=== PATIENT | female | born 1955 | race Caucasian/White ===

== ENCOUNTER 2017-03-05 19:18 | Emergency (ER) | payer SELFPAY ==
[~2017-03-05] VITALS: Ht 154.9 cm; Wt 45.4 kg
[2017-03-05 19:45] VITALS: BP 212/100
--- NOTE | 2017-03-05 20:02 | Emergency Room Report ---
History of Present Illness General Chief Complaint: Dizziness Source: Patient Present Illness HPI 61YOF walk-in with dizziness, right sided weakness, difficult walking, katie- oral numbness since last night. States she wanted to take an aspirin, accidentally took ONE "muscle relaxer." Denies taking ibuprofen, tylenol, aspirin Denies ETOH, other drugs Denies PMHx or other medications Denies history of HTN Allergies: Coded Allergies: PENICILLINS (Verified Allergy, Unknown, 03/05/17) Patient History Past Medical History: none Past Surgical History: none Pertinent Family History: none Social History: Denies: alcohol use, drug use, smoking Now: No Immunizations: UTD Reviewed Nursing Documentation: PMH: Agreed, PSxH: Agreed Nursing Documentation-PMH Past Medical History: No Stated History Review of Systems All Other Systems: negative except mentioned in HPI Physical Exam Vital Signs Date Time Temp Pulse Resp B/P Pulse Ox O2 Delivery O2 Flow Rate FiO2 03/05/17 19:41 97.3 55 9 219/113 100 Room Air Sp02 EP Interpretation: reviewed, abnormal General Appearance: normal inspection, well appearing, no apparent distress, alert, GCS 15, non-toxic Head: normocephalic, atraumatic Eyes: bilateral eye EOMI, bilateral eye PERRL ENT: normal ENT inspection, hearing grossly normal, normal voice Neck: normal inspection, full range of motion, supple, no bony tend Respiratory: normal inspection, lungs clear, normal breath sounds, no respiratory distress, no retraction, no wheezing Cardiovascular #1: regular rate, rhythm, no edema Gastrointestinal: normal inspection, normal bowel sounds, non tender, soft, no guarding, no hernia Genitourinary: no CVA tenderness Musculoskeletal: normal inspection, back normal, normal range of motion, Charu' s Sign negative Neurologic: normal inspection, alert, oriented x3, responsive, 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 >200/100. - Symptomatic hypertension with dizziness - No chest pain, SOB - CT head: Acute left pontine hemorrhagic stroke - Nicardipine gtt started in ED - Labs: Tylenol/ASA levels negative. No FABRICIO. Troponin 0. - ECG: NSR. No ischemia 149/76 on 10mg of Nicardipine in ED at 848pm Endorsed to Dr Saini for NeuroICU transfer at 830pm to [facility] Will do rescue transfer to NeuroICU at [facility] Last Vital Signs Date Time Temp Pulse Resp B/P Pulse Ox O2 Delivery O2 Flow Rate FiO2 03/05/17 19:41 97.3 55 9 219/113 100 Room Air Status: improved Disposition: ADMITTED INPATIENT Condition: Critical RADHA HUMPHRIES M.D. Mar 05, 2017 20:02
[2017-03-05] MEDS ORDERED: niCARdipine HCl 200 ML IV SCH (20:15)
[2017-03-05 20:32] LABS: BASOPHILS % (AUTO) 0.9 % (0.0-2.0); EOSINOPHILS % (AUTO) 0.1 % (0.0-3.0); LYMPHOCYTES % (AUTO) 11.7 % (20.0-45.0); MEAN CORPUSCULAR HEMOGLOBIN 33.1 PG (27.0-31.0); MEAN CORPUSCULAR HGB CONC 33.4 G/DL (32.0-36.0); MEAN CORPUSCULAR VOLUME 99 FL (80-99); MEAN PLATELET VOLUME 6.4 FL (6.5-10.1); MONOCYTES % (AUTO) 4.7 % (1.0-10.0); NEUTROPHILS % (AUTO) 82.6 % (45.0-75.0); PLATELET COUNT 296 K/UL (150-450); RED BLOOD COUNT 4.71 M/UL (4.20-5.40); RED CELL DISTRIBUTION WIDTH 12.1 % (11.6-14.8); WHITE BLOOD COUNT 9.1 K/UL (4.8-10.8)
[2017-03-05 20:38] VITALS: BP 190/96
[2017-03-05 20:45] LABS: ACETAMINOPHEN < 10 ug/mL (10-30); ALANINE AMINOTRANSFERASE 14 U/L (3-33); ALBUMIN/GLOBULIN RATIO 1.3 (1.0-2.7); ANION GAP 10 (5-15); ASPARTATE AMINO TRANSFERASE 16 U/L (5-40); CALCIUM 9.3 mg/dL (8.6-10.2); CARBON DIOXIDE 27 mEQ/L (20-30); CHLORIDE 102 mEQ/L (98-107); CREATININE 0.9 mg/dL (0.5-0.9); GLOMERULAR FILTRATION RATE > 60 mL/min (>60); HEMOLYSIS 7; POTASSIUM 3.9 mEQ/L (3.4-4.9); SODIUM 139 mEQ/L (135-145); TOTAL PROTEIN 7.4 g/dL (6.6-8.7); TROPONIN I < 0.30 ng/mL (<=0.30)
[2017-03-05 20:47] VITALS: BP 148/76
[2017-03-05 20:56] LABS: CKMB 2.1 ng/mL (< 3.8)
[2017-03-05 20:58] VITALS: BP 159/81
[2017-03-05 21:15] VITALS: BP 148/80
--- NOTE | 2017-03-06 09:54 | Diagnostic Imaging Report ---
Indication: Chest pain Comparison: None A single view chest radiograph was obtained. Findings: Cardiomediastinal appearance is within normal limits for age. Pulmonary vascularity is appropriate. The diaphragmatic contour is smooth and costophrenic angles are sharp. No pleural effusions are identified. The bones are osteopenic. Impression: No acute findings
--- NOTE | 2017-03-06 11:33 | Diagnostic Imaging Report ---
Indication: Altered mental status Technique: Contiguous 5 mm thick transaxial imaging of the head obtained in a Siemens Sensation [address] scanner. Soft tissue and bone windows generated. Total Dose length Product (DLP): [address] Dose Index Volume (CTDIvol): 70.38 mGy Comparison: none Findings: 1.5 x 1.2 x 1.7 cm focus of high attenuation consistent with acute hemorrhage demonstrated within the posterior left paramedian aspect of the beck. Little to no associated edema. No mass effect. The fourth ventricle appears normal. There is no hydrocephalus. . Mild periventricular low attenuation noted. Paranasal sinuses as visualized appear clear. The bones are unremarkable. Impression: 1.5 x 1.2 x 1.7 cm focus of acute intraparenchymal hemorrhage in the left aspect of the beck. Critical value communication. Findings were discussed via telephone with Dr. Marcus of the E.D. at 20:22 03/05/[address] Devon Oliver. The CT scanner at [facility] is accredited by the [employer] and the scans are performed using dose optimization techniques as appropriate to a performed exam including Automatic Exposure control.
--- NOTE | 2017-03-08 17:53 | Cardiology Report ---
APPROVED REPORT EKG Measurement Heart [id number] Sinus bradycardia Otherwise normal ECG
== END 2017-03-05 21:06 | disposition short-term general hospital (02) ==
LOC: EDBEDREQ 20:19 → EMR 20:32
DX: I61.8 Other nontraumatic intracerebral hemorrhage (principal); R42 Dizziness and giddiness; R53.1 Weakness; I10 Essential (primary) hypertension; Z88.0 Allergy status to penicillin
CPT/HCPCS: 36415; 70450; 71010; 80053; 82550; 82553; 84484; 85025; 93005; 96374; 99285; G0480; 80329

== ENCOUNTER 2017-04-27 15:24 | Emergency (ER) | payer MEDICAID ==
[~2017-04-27] VITALS: Ht 152.4 cm; Wt 48.5 kg
[2017-04-27] MEDS ORDERED: Fluorescein Strips LEFT EYE ONE (15:45)
[2017-04-27] MEDS ORDERED: Tetracaine 0.5% Opth Soln LEFT EYE ONE (15:45)
--- NOTE | 2017-04-27 15:54 | Emergency Room Report ---
History of Present Illness General Chief Complaint: Eye Problems Source: Patient Present Illness HPI 61 YO female presents to the emergency department complaining of discharge, lacrimation and erythema of the left eye x2 days. Patient states that earlier this week her right eye had similar symptoms. Patient denies pain despite triage note. She reports some photophobia to sunlight. She denies contact lens use, reports use of glasses. Denies foreign body sensation. Patient reports that her left eye was very sticky upon awakening this morning. She denies trauma to the eye, swelling of the eyelids, or scratching sensation. Denies: Pain, Loss of vision, Floaters, Flashing lights, Diplopia/blurry vision. Denies AGUILAR. Allergies: Coded Allergies: PENICILLINS (Verified Allergy, Unknown, 03/05/17) Patient History Past Medical History: see triage record Past Surgical History: none Pertinent Family History: none Now: No Reviewed Nursing Documentation: PMH: Agreed, PSxH: Agreed Nursing Documentation-PMH Hx Hypertension: Yes Hx Cerebrovascular Accident: Yes - 03/05/17 Review of Systems All Other Systems: negative except mentioned in HPI Physical Exam Vital Signs Date Time Temp Pulse Resp B/P (MAP) Pulse Ox O2 Delivery O2 Flow Rate FiO2 04/27/17 15:29 98.1 71 16 127/82 96 Room Air Sp02 EP Interpretation: reviewed, normal General Appearance: no apparent distress, alert, GCS 15, non-toxic Head: normocephalic, atraumatic Eyes: bilateral eye normal inspection, bilateral eye PERRL, bilateral eye EOMI , bilateral eye other - d/c prominently in the left eye, bilateral scleral injection/erythema, and increased lacrimation, no appreciable photophobia on PE ENT: hearing grossly normal, normal voice Neck: full range of motion Respiratory: lungs clear, normal breath sounds, speaking full sentences Cardiovascular #1: regular rate, rhythm Psychiatric: judgement/insight normal, memory normal, mood/affect normal Skin: normal color, no rash, warm/dry, well hydrated Medical Decision Making PA Attestation Dr. Marcus is my supervising Physician whom patient management has been discussed with. Diagnostic Impression: Primary Impression: Conjunctivitis Qualified Codes: H10.32 - Unspecified acute conjunctivitis, left eye ER Course 61 YO female presents to the emergency department complaining of discharge, lacrimation and erythema of the left eye x2 days. Patient states that earlier this week her right eye had similar symptoms. Patient denies pain despite triage note. She reports some photophobia to sunlight. She denies contact lens use, reports use of glasses. Denies foreign body sensation. Patient reports that her left eye was very sticky upon awakening this morning. She denies trauma to the eye, swelling of the eyelids, or scratching sensation. Denies: Pain, Loss of vision, Floaters, Flashing lights, Diplopia/blurry vision. Denies AGUILAR. Ddx considered but are not limited to: corneal abrasion, acute glaucoma, globe rupture, FB, Corneal Ulcer, conjunctivitis. Iridis, orbital cellulitis,keratitis , sinusitis Vital signs: are WNL, pt. is afebrile H&PE are most consistent with: bacterial conjunctivitis. ORDERS: none at this time. ED INTERVENTIONS: none at this time. I do not suspect an emergent condition at this time. with current presentation pt. is stable for close outpatient follow up. D/w pt. to return to ED with worsening or new symptoms. D/ W pt. Ophthalmic Follow up. -d/w pt. to change pillow case nightly to avoid back and forth contamination. DISCHARGE: At this time pt. is stable for d/c to home. Will provide printed patient care instructions, and any necessary prescriptions. Care plan and follow up instructions have been discussed with the patient prior to discharge. Last Vital Signs Date Time Temp Pulse Resp B/P (MAP) Pulse Ox O2 Delivery O2 Flow Rate FiO2 04/27/17 15:29 98.1 71 16 127/82 96 Room Air Disposition: HOME, SELF-CARE Condition: Stable Scripts Ofloxacin (OCUFLOX) 5 Ml Drops 2 DROP OP BID for 7 Days, #5 ML Prov: Grace Thacker 04/27/17 Patient Instructions: Bacterial Conjunctivitis, Ulrb-[id number] Additional Instructions: Take medications as directed. Follow up with a Lathe Setup Operator in 3-5 days, even if your symptoms have resolved. --Please review list of primary care clinics, if you do not already have a primary care provider who can give you an ophthalmology referral. Return sooner to ED if new symptoms occur, or current symptoms become worse. - Please note that this Emergency Department Report was dictated using [employer] mess attendant technology software, occasionally this can lead to erroneous entry secondary to interpretation by the dictation equipment. Grace Thacker Apr 27, 2017 15:54
[2017-04-27] MEDS ORDERED: OCUFLOX5 ML OP (15:55)
[2017-04-27 16:33] VITALS: BP 127/82
[2017-04-27 16:36] VITALS: BP 127/82
== END 2017-04-27 16:39 | disposition home or self-care (01) ==
LOC: EMR 15:56
DX: H10.32 Unspecified acute conjunctivitis, left eye (principal); Z88.0 Allergy status to penicillin; I10 Essential (primary) hypertension; Z86.73 Personal history of transient ischemic attack (TIA), and cerebral infarction without residual deficits
CPT/HCPCS: 99283